=== PATIENT | female | born 1995 | race Native Hawaiian/Other Pacific Islander ===

== ENCOUNTER 2020-09-22 09:25 | Emergency (ER) | payer BC ==
[~2020-09-22] VITALS: Ht 167.6 cm; Wt 77.1 kg
[2020-09-22 09:38] VITALS: TEMP 98.9
[2020-09-22 11:48] VITALS: BP 138/89
== END 2020-09-22 11:48 | disposition home or self-care (01) ==
LOC: ED 09:25
DX: S80.12XA Contusion of left lower leg, initial encounter (principal); S80.11XA Contusion of right lower leg, initial encounter; M25.561 Pain in right knee; V43.53XA Car driver injured in collision with pick-up truck in traffic accident, initial encounter; Y92.89 Other specified places as the place of occurrence of the external cause
CPT/HCPCS: 99282; 99283